=== PATIENT | female | born 1950 | race African-American/Black ===

== ENCOUNTER 2017-07-29 06:12 | Day surgery (SDC) | payer OTHER ==
[2017-07-28 10:25] VITALS: BMI 34.8
[2017-07-29] MEDS ORDERED: MIDAZOLAM HCL 2 MG/2 ML SINGLE DOSE VIAL ONE (07:53)
[2017-07-29] MEDS ORDERED: PROPOFOL 20 ML ONE ×3 (07:55)
[2017-07-29] MEDS ORDERED: SUCCINYLCHOLINE CHLORIDE 200 MG/10 ML VIAL ONE (07:55)
[2017-07-29] MEDS ORDERED: LIDOCAINE HCL/PF 2% SDV 5ML VIAL ONE (08:24)
[2017-07-29] MEDS ORDERED: DEXAMETHASONE SOD PHOSPHATE 4 MG/1 ML VIAL ONE (08:24)
[2017-07-29] MEDS ORDERED: oxyCODONE HCL 5 MG TABLET PO PRN ×2 (08:50)
[2017-07-29] MEDS ORDERED: IBUPROFEN 800 MG/8 ML IJ IVPB PRN (08:50)
[2017-07-29] MEDS ORDERED: ONDANSETRON 4 MG/2 ML VIAL IVPUSH PRN (08:50)
[2017-07-29] MEDS ORDERED: LACTATED RINGERS SOLUTION 1,000 ML IV SCH (09:00)
[2017-07-29 11:26] VITALS: TEMP 97.6
[2017-07-29 11:27] VITALS: BP 130/68; PULSE 68
--- NOTE | 2017-08-01 13:44 | PATH ---
Surgical Pathology Report Patient Name: VI DOSS [facility]. Rec. #: [id number] /Age/Gender: 1950 (Age: 66) / F Account: [id number] Location: [facility] SURGICAL Taken: 07/29/2017 Received: 07/29/2017 Reported: 08/01/2017 Physicians: Giuseppe Gonzales DO Specimen(s) Received A: ENDOCERVICAL CURETTINGS B: ENDOMETRIAL CURETTINGS Clinical History Postmenopausal bleeding, pyometra Final Diagnosis A. ENDOCERVICAL CURETTING, DILATION AND CURETTAGE: FRAGMENTS OF BENIGN PREDOMINANTLY EXOCERVICAL SQUAMOUS MUCOSA AND RARE ENDOCERVICAL CELLS ADMIXED WITH BLOOD. B. ENDOMETRIAL CURETTAGE, DILATION AND CURETTAGE: FRAGMENTS OF ATROPHIC ENDOMETRIUM AND BENIGN CERVICAL TISSUE ADMIXED WITH BLOOD. Electronically Signed Donna Turcios M.D. Gross Description A. Received in formalin labeled "endocervical curetting," is a 0.3 x 0.2 x 0.1 cm brown soft tissue fragment. The specimen is submitted in toto in one cassette. B. Received in formalin labeled "endometrial curettage," is a 1.0 x 0.8 x 0.2 cm aggregate of pelaez-brown soft tissue fragments. The formalin is filtered and the specimen is entirely submitted in one cassette. 07/29/201707/29/2017
--- NOTE | 2017-08-02 12:32 | OP ---
DATE OF OPERATION: 07/29/2017 PREOPERATIVE DIAGNOSIS: Postmenopausal vaginal bleeding, hydrometra. POSTOPERATIVE DIAGNOSIS: Postmenopausal vaginal bleeding, hydrometra. PROCEDURE: Diagnostic hysteroscopy and dilatation curettage. SURGEON: Giuseppe Gonzales DO ANESTHESIA: General. ESTIMATED FLUID: 500 mL. DISTENSION MEDIA: Normal saline, 500 mL. DISTENSION MEDIA DEFICIT: 0. ESTIMATED BLOOD LOSS: 50 mL. URINE OUTPUT: 100 mL. SPECIMEN: Endometrial lining. COMPLICATIONS: None. DESCRIPTION OF PROCEDURE: Patient was taken to the OR where general anesthesia was administered without difficulty. She was placed in the dorsal lithotomy position with stirrups. Examination under anesthesia revealed normal-sized uterus of 6-8 weeks size. The patient was then prepped and draped in the usual sterile fashion. A weighted speculum was inserted into the posterior aspect of the vagina. A single-tooth tenaculum was used to grab the anterior lip of the cervix. The uterus was carefully sounded to 6 cm. The cervical os was gradually dilated to accommodate the hysteroscope. The hysteroscope was introduced under direct visualization and uterus distended with normal saline. The endometrial cavity appeared atrophic. No lesion, no mass was noted. The hysteroscope was withdrawn and the cervix was further dilated to accommodate a sharp curette. The uterus was curettage in a clockwise fashion until gritty sensation was noted. The endometrial scrapings were sent to Pathology. Tenaculum was removed from the cervix with excellent hemostasis noted at the puncture site. Patient tolerated the procedure well. The instrument and sponge counts were correct x2. The patient was awakened from general anesthesia and taken to the recovery room in stable condition. The patient will be discharged home after recovering from anesthesia and meeting all criteria for discharge. She was given instructions with regards to followup visit in [address] Gonzales. Giuseppe Gonzales DO /[id number]
== END 2017-07-29 14:20 | disposition home or self-care (01) ==
LOC: JASU-SURG 06:12
PROVIDERS: ATTEND Obstetrics & Gynecology
PROC: 0UDB7ZX Extraction of Endometrium, Via Natural or Artificial Opening, Diagnostic (ICD-10-PCS; principal; 2017-07-29 08:00)
PROC: 0UJD8ZZ Inspection of Uterus and Cervix, Via Natural or Artificial Opening Endoscopic (ICD-10-PCS; 2017-07-29 08:00)
DX: N95.0 Postmenopausal bleeding (principal); N85.8 Other specified noninflammatory disorders of uterus
CPT/HCPCS: 88305-TC; 94760